=== PATIENT | female | born 1975 | race Hispanic/Latino ===

== ENCOUNTER 2018-08-02 07:09 | Outpatient (CLI) | payer OTHER ==
--- NOTE | 2018-08-02 07:50 | ULT ---
Sonogram abdomen complete HISTORY: Upper abdomen pain. FINDINGS: Gallbladder has a normal appearance without evidence of stones. Common duct is 0.5 cm. Live r has a normal appearance without focal mass or intrahepatic biliary dilatation. No free fluid. The spleen, kidneys, and visualized portions of abdominal aorta, IVC, and pancreas are unremarkable. IMPRESSION: Normal abdominal sonogram.
== END 2018-08-02 07:10 | disposition home or self-care (01) ==
LOC: BICULT 07:09
PROVIDERS: ATTEND Family Medicine
DX: R10.9 Unspecified abdominal pain (principal)
CPT/HCPCS: 76700

== ENCOUNTER 2019-01-05 12:55 | Outpatient (CLI) | payer OTHER, SELFPAY ==
[~2019-01-05 12:55] MED LIST: Iopamidol 370 76% 100 ML VIAL ONE
--- NOTE | 2019-01-05 15:05 | CT ---
EXAM: CT of the chest with contrast CT of the abdomen and pelvis with contrast HISTORY: History of breast cancer status post mastectomy in 2013. Breast cancer recurrence. COMPARISON: 04/04/2016 TECHNIQUE: 1. Multiple contiguous axial images were obtained in a CT the chest with contrast. Coronal and sagitt al reformats were performed. 2. Multiple contiguous axial images were obtained and a CT of the abdomen and pelvis with contrast. C oronal and sagittal reformats were performed. Oral contrast was administered. FINDINGS: CT CHEST: HEART: Normal in size without focal cardiac abnormality MEDIASTINUM: No hilar or mediastinal lymphadenopathy. LUNGS: No focal infiltrates, nodules, or masses. PLEURAL SPACE: No pneumothorax or pleural effusion. CHEST WALL SOFT TISSUES: Status post right mastectomy and axillary dissection. CT ABDOMEN/PELVIS: ABDOMEN: LIVER: within normal limits. BILE DUCTS: Normal caliber. GALLBLADDER: No calcified gallstones. Normal caliber wall. PANCREAS: within normal limits. SPLEEN: within normal limits. ADRENALS: within normal limits. KIDNEYS: within normal limits. PELVIS: REPRODUCTIVE ORGANS: No pelvic masses. URETERS: within normal limits. BLADDER: within normal limits. PERITONEUM: No ascites or free air, no fluid collection. BOWEL: Normal caliber. Normal appendix. MESENTERY AND RETROPERITONEUM: No enlarged mesenteric or retroperitoneal lymph nodes. VESSELS: Normal. ABDOMINAL WALL: within normal limits. OSSEOUS STRUCTURES: No suspicious osseous lesions. IMPRESSION: No evidence of recurrent or metastatic disease.
== END 2019-01-05 12:56 | disposition home or self-care (01) ==
LOC: BICCT 12:55
PROVIDERS: ATTEND Internal Medicine Hematology & Oncology
DX: C50.919 Malignant neoplasm of unspecified site of unspecified female breast (principal)
CPT/HCPCS: 71260; 74177

== ENCOUNTER 2019-01-12 06:06 | Day surgery (SDC) | payer OTHER ==
[2019-01-11 16:12] VITALS: BMI 24.3
[2019-01-12] MEDS ORDERED: Fentanyl 100 MCG/2 ML VIAL ONE (06:31)
[2019-01-12] MEDS ORDERED: Midazolam HCl 2 mg/2 ml Vial ONE (06:32)
[2019-01-12] MEDS ORDERED: Albumin 25% 100 ML ONE (06:32)
[2019-01-12] MEDS ORDERED: Bupivacaine/Epinephrine 0.25% 30 ML VIAL ONE (06:52)
[2019-01-12] MEDS ORDERED: Lidocaine 2% PF 5 ML VIAL ONE (06:52)
[2019-01-12] MEDS ORDERED: Famotidine/PF 20 mg/2ml Vial ONE (06:54)
[2019-01-12] MEDS ORDERED: Ondansetron PF 4 MG/2 ML Vial ONE ×2 (06:55→10:25)
[2019-01-12] MEDS ORDERED: Scopolamine 1.5 mg/72 hour Patch ONE (06:55)
[2019-01-12 06:56] LABS: #Basophils 0.1 thou/uL (0.0-0.2); #Eosinphils 0.3 thou/uL (0.0-0.7); #Lymphocytes 2.7 thou/uL (1.20-3.40); #Monocytes 0.5 thou/uL (0.11-0.59); #Neutrophils 2.8 thou/uL (1.40-6.50); %Basophils 1.2 % (0.0-1.0); %Eosinophils 5.3 % (0.0-10.0); %Lymphocytes 42.4 % (21.0-51.0); %Monocytes 7.4 % (0.0-10.0); %Neutrophils 43.6 % (42.0-75.0); Hemoglobin 12.4 g/dL (12.0-16.0); Mean Corpuscular HGB CONC 32.7 g/dL (32.0-36.0); Mean Corpuscular Hemoglobin 29.6 pg (27.0-31.0); Mean Corpuscular Volume 90.4 fL (78.0-98.0); Mean Platelet Volume 9.1 fL (7.4-10.4); Platelet Count 174 thou/uL (130-400); RBC Distribution Width 11.5 % (11.5-14.5); Red Blood Cell (RBC) Count 4.18 mill/uL (4.20-5.40); White Blood Cell (WBC) Count 6.4 thou/uL (4.8-10.8)
[2019-01-12 07:11] LABS: BHCG - Serum Negative (NEGATIVE); Pregs Control Background? CLEAR/WHITE (CLR/WHITE); Pregs Control Bar Appear? YES (CONTROL BAR)
[2019-01-12 07:18] LABS: Anion Gap 10 mmol/L (10-20); BUN (Urea Nitrogen) 17 mg/dL (7.0-18.7); Calc. Creatinine Clearance 87 mL/min (70-130); Calcium 9.2 mg/dL (7.8-10.44); Carbon Dioxide 26 mmol/L (22-29); Chloride 106 mmol/L (98-107); Estimated GFR-MDRD 79; Glucose 97 mg/dL (70-105); Potassium 4.4 mmol/L (3.5-5.1); Sodium 138 mmol/L (136-145)
[2019-01-12] MEDS ORDERED: HYDROcodone/Acetaminophen 5/325 mg Tablet ONE (10:02)
[2019-01-12] MEDS ORDERED: Ketorolac Tromethamine 30 MG/ML VIAL ONE (10:25)
[2019-01-12] MEDS ORDERED: Succinylcholine Chloride 20 MG/ML 10 ml SYRINGE FS ONE (10:25)
[2019-01-12] MEDS ORDERED: Lidocaine 1% PF 5 ML VIAL ONE (10:25)
[2019-01-12] MEDS ORDERED: Rocuronium Bromide 10 MG/ML (10ML VIAL) ONE (10:25)
[2019-01-12] MEDS ORDERED: PROPOFOL 200 MG/20 ML VIAL ONE (10:25)
--- NOTE | 2019-01-18 20:30 | PDOC.OP ---
Operative Note - Operative Note Operative Note: PROCEDURE: Excision of recurrent right breast cancer from mastectomy site SURGEON: Nav Donovan M.D. DATE: 01/12/2019 PREOPERATIVE DIAGNOSIS: Recurrent right breast cancer at mastectomy site POSTOPERATIVE DIAGNOSIS: Recurrent right breast cancer at mastectomy site HISTORY: Patient is status post mastectomy 6 years ago. She developed a nodule at her mastectomy site which was biopsied and is positive for recurrent breast cancer. CT was negative for distant recurrence. Excision was recommended. PROCEDURE IN DETAIL: After informed consent was obtained the patient was taken to the operating room she was placed in supine position and general anesthesia was administered. She was prepped and draped in standard sterile fashion and local anesthesia infused to the skin and subcutaneous tissues surrounding the nodule. This measured just around 1.5 cm and a 2 x 4 cm elliptical incision was marked to ensure complete excision but still allow closure. The lesion was excised and marked for orientation with a long lateral and short superior suture. The incision was then closed with a deep dermal 3-0 Monocryl suture and a 4-0 Monocryl subcuticular suture. Dermabond dressings were placed. The patient was extubated and taken to recovery in good condition. Estimated blood loss is minimal. There were no complications. Specimen is recurrent breast cancer of right mastectomy scar.
== END 2019-01-12 10:50 | disposition home or self-care (01) ==
LOC: SDC 06:06
PROVIDERS: ATTEND Surgery
PROC: 0HTT0ZZ Resection of Right Breast, Open Approach (ICD-10-PCS; principal; 2019-01-12)
DX: C50.811 Malignant neoplasm of overlapping sites of right female breast (principal); E07.9 Disorder of thyroid, unspecified; Z17.0 Estrogen receptor positive status [ER+]; Z79.810 Long term (current) use of selective estrogen receptor modulators (SERMs); Z79.899 Other long term (current) drug therapy
CPT/HCPCS: 36415; 80048; 84703; 85025; 88305; 88341; 88342; J0131; J1885; J2001; J2250; J2405; J2704; J3010; P9047; S0028

== ENCOUNTER 2019-06-20 08:03 | Outpatient (CLI) | payer OTHER ==
--- NOTE | 2019-06-20 10:08 | CT ---
CT OF CHEST AND ABDOMEN AND PELVIS PERFORMED WITH IV CONTRAST ENHANCEMENT: Date: 06/20/2019 HISTORY: Breast cancer. Right mastectomy and radiation. This is a follow-up. COMPARISON: 01/05/2019 study. FINDINGS: CT CHEST: There are somewhat ill-defined nodular parenchymal changes within the right middle lobe and the right lower lobe. The changes in the lower lobe are more anterior basal segment just near the major fissur e. I would favor that these are presenting pneumonic-type change and not metastatic lesions. The poss ibility that this is related to pneumonitis if there has been recent radiation is not excluded. There is no significant mediastinal or hilar lymphadenopathy. CT ABDOMEN: CT of abdomen was performed with contrast enhancement. The liver, spleen, pancreas, and gallbladder r egions all appear unremarkable. Right and left adrenal glands, and right and left kidneys are normal in size. No significant periaortic or mesenteric adenopathy. CT PELVIS: CT of pelvis was performed with contrast enhancement. Follicles are seen involving the adnexa. Endome trium is slightly thickened, this is probably related to stage of menstrual cycle. No adenopathy, mas s, or free fluid. OSSEOUS STRUCTURES: No lytic or blastic bony change. IMPRESSION: 1. Nodular appearing infiltrative-type changes seen in the right middle lobe and right lower lobe. T hese are located more anteriorly, and although this could represent a pneumonic process, after discus mariella with Dr. Pedroza, patient has had radiation since the previous exam and this could represent rad iation pneumonitis change as another possibility. 2. Post right mastectomy change. 3. Otherwise stable exam. POS: JESSICA
== END 2019-06-20 08:04 | disposition home or self-care (01) ==
LOC: BICCT 08:03
PROVIDERS: ATTEND Internal Medicine Hematology & Oncology
DX: C50.911 Malignant neoplasm of unspecified site of right female breast (principal); Z90.11 Acquired absence of right breast and nipple
CPT/HCPCS: 71260; 74177

== ENCOUNTER 2019-07-11 07:17 | Outpatient (CLI) | payer OTHER ==
[2019-07-11 10:44] LABS: Hemoglobin 12.9 g/dL (12.0-16.0); Mean Corpuscular HGB CONC 33.4 g/dL (32.0-36.0); Mean Corpuscular Hemoglobin 30.3 pg (27.0-31.0); Mean Corpuscular Volume 90.8 fL (78.0-98.0); Mean Platelet Volume 9.6 fL (7.4-10.4); Platelet Count 179 thou/uL (130-400); RBC Distribution Width 10.7 % (11.5-14.5); Red Blood Cell (RBC) Count 4.25 mill/uL (4.20-5.40); White Blood Cell (WBC) Count 5.1 thou/uL (4.8-10.8)
[2019-07-11 10:50] LABS: BHCG - Serum Negative (NEGATIVE); Pregs Control Background? CLEAR/WHITE (CLR/WHITE); Pregs Control Bar Appear? YES (CONTROL BAR)
== END 2019-07-11 07:18 | disposition home or self-care (01) ==
LOC: LABBT 07:17
PROVIDERS: ATTEND Obstetrics & Gynecology
DX: Z01.812 Encounter for preprocedural laboratory examination (principal); C50.919 Malignant neoplasm of unspecified site of unspecified female breast; Z17.0 Estrogen receptor positive status [ER+]
CPT/HCPCS: 84703; 85027; 86850; 86870; 86900; 86901

== ENCOUNTER 2019-07-13 12:31 | Outpatient (CLI) | payer OTHER ==
[2019-07-13 18:25] LABS: SARS-CoV-2 MS2 Positive; SARS-CoV-2 N Gene Negative; SARS-CoV-2 S Gene Negative; SARS-CoV-2 orf1ab Negative
== END 2019-07-13 12:32 | disposition home or self-care (01) ==
LOC: LABBT 12:31
PROVIDERS: ATTEND Obstetrics & Gynecology
DX: Z11.59 Encounter for screening for other viral diseases (principal); C50.919 Malignant neoplasm of unspecified site of unspecified female breast; Z17.0 Estrogen receptor positive status [ER+]
CPT/HCPCS: 87635; U0002

== ENCOUNTER → 2019-07-17 | Day surgery (SDC) | payer OTHER, SELFPAY ==
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
[2019-07-11 09:47] VITALS: BMI 25.7
[~2019-07-17] MED LIST changes: +Bupivacaine 0.25% HCL 30 ML VIAL ONE; +CeleCOXIB 100 MG CAP ONE; +Dexamethasone 20 MG/5 ML VIAL ONE; +Esmolol 100 MG/10 ML VIAL ONE; +Famotidine/PF 20 mg/2ml Vial ONE; +Fentanyl 100 MCG/2 ML VIAL ONE; +Ferric Subsulfate (ASTRINGYN) 8 ML VIAL ONE; +Gabapentin 300 MG CAP ONE; +Glycopyrrolate 0.2 MG/ML 5 ML SYRINGE ONE; +HYDROcodone/Acetaminophen 5/325 mg Tablet ONE; -Iopamidol 370 76% 100 ML VIAL ONE; +Ketorolac Tromethamine 30 MG/ML VIAL ONE; +Lidocaine 1% PF 5 ML VIAL ONE; +Lidocaine 1% w/Epinephrine 1:100K 20 ML VIAL ONE; +Midazolam HCl 2 mg/2 ml Vial ONE; +Ondansetron PF 4 MG/2 ML Vial ONE; +PROPOFOL 200 MG/20 ML VIAL ONE; +Rocuronium Bromide 10 MG/ML (10ML VIAL) ONE; +SUGAMMADEX SODIUM 200 MG/2 ML VIAL ONE; +Scopolamine 1.5 mg/72 hour Patch ONE; +Sodium Chloride 0.9% 0 ML ONE; +Succinylcholine Chloride 20 MG/ML 10 ml SYRINGE FS ONE
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
== END ==
LOC: SDC 07:01
PROVIDERS: ATTEND Obstetrics & Gynecology
PROC: 0UB74ZZ Excision of Bilateral Fallopian Tubes, Percutaneous Endoscopic Approach (ICD-10-PCS; principal; 2019-07-17)
PROC: 0UB24ZZ Excision of Bilateral Ovaries, Percutaneous Endoscopic Approach (ICD-10-PCS; principal; 2019-07-17)
DX: Z40.02 Encounter for prophylactic removal of ovary(s) (principal); N83.202 Unspecified ovarian cyst, left side; N83.201 Unspecified ovarian cyst, right side; K66.0 Peritoneal adhesions (postprocedural) (postinfection); E07.9 Disorder of thyroid, unspecified; Z85.3 Personal history of malignant neoplasm of breast; Z79.810 Long term (current) use of selective estrogen receptor modulators (SERMs); Z79.899 Other long term (current) drug therapy
CPT/HCPCS: 86850; 86900; 86901; 86922; 88307; J0690; J1100; J1885; J2001; J2250; J2405; J2704; J3010; J3490; S0020; S0028

== ENCOUNTER 2019-08-16 19:23 | Emergency (ER) | payer OTHER, SELFPAY ==
[2019-08-17 18:05] LABS: SARS-CoV-2 MS2 Positive; SARS-CoV-2 N Gene Negative; SARS-CoV-2 S Gene Negative; SARS-CoV-2 orf1ab Negative
== END 2019-08-16 20:10 | disposition home or self-care (01) ==
LOC: MERGE 19:23 → ERS 19:23
DX: R51 Headache (principal); R06.02 Shortness of breath; R05 Cough; Z20.828 Contact with and (suspected) exposure to other viral communicable diseases; J45.909 Unspecified asthma, uncomplicated; Z85.3 Personal history of malignant neoplasm of breast
CPT/HCPCS: 87635; 99284; U0003

== ENCOUNTER 2020-01-09 09:46 | Outpatient (CLI) | payer OTHER ==
--- NOTE | 2020-01-09 10:30 | MMO ---
Left Breast MAMMO Unilat Diag DDI LT+ESDRAS. CLINICAL HISTORY: Patient is 44 years old and is seen for diagnostic exam. The patient has no family history of breast cancer. The patient has a history of right Excisional Biopsy in December, - malignant, right Ultrasound Guided Core Biopsy in June, - invasive ductal carcinoma and right Mastectomy in 2012 - malignant. VIEWS: The views performed were: left craniocaudal with tomosynthesis; left mediolateral oblique with tomosynthesis; and left mediolateral with tomosynthesis. FILMS COMPARED: The present examination has been compared to prior imaging studies performed at [place] [facility] on 07/31/2015, 09/21/2016, 10/20/2017 and 12/29/2018. This study has been interpreted with the assistance of computer-aided detection. MAMMOGRAM FINDINGS: The breast is heterogeneously dense, which could obscure a lesion on mammography. There are benign appearing calcifications in the left breast. There are no suspicious masses, suspicious calcifications, or new areas of architectural distortion. IMPRESSION: THERE IS NO MAMMOGRAPHIC EVIDENCE OF MALIGNANCY. A ROUTINE FOLLOW-UP MAMMOGRAM IN 1 YEAR IS RECOMMENDED. THE RESULTS OF THIS EXAM WERE SENT TO THE PATIENT. ACR BI-RADS Category 2 - Benign finding MAMMOGRAPHY NOTE: 1. A negative mammogram report should not delay a biopsy if a dominant of clinically suspicious mass is present. 2. Approximately 10% to 15% of breast cancers are not detected by mammography. 3. Adenosis and dense breasts may obscure an underlying neoplasm. Reported by: MODESTO MONTES MD Electonically Signed: [id number]
== END 2020-01-09 09:47 | disposition home or self-care (01) ==
LOC: BICMAMMO 09:46
PROVIDERS: ATTEND Surgery
DX: Z08 Encounter for follow-up examination after completed treatment for malignant neoplasm (principal); Z85.3 Personal history of malignant neoplasm of breast
CPT/HCPCS: G0279

== ENCOUNTER 2021-01-05 10:11 | Outpatient (CLI) | payer OTHER | END 2021-01-05 10:12 | disposition home or self-care (01) | LOC: BICMAMMO 10:11 | PROVIDERS: ATTEND Surgery | DX: Z08 Encounter for follow-up examination after completed treatment for malignant neoplasm (principal); Z85.3 Personal history of malignant neoplasm of breast | CPT/HCPCS: G0279 ==

== ENCOUNTER 2021-02-12 08:43 | Outpatient (CLI) | payer OTHER | END 2021-02-12 08:44 | disposition home or self-care (01) | LOC: CT 08:43 | PROVIDERS: ATTEND Internal Medicine Hematology & Oncology | DX: M25.551 Pain in right hip (principal); C50.919 Malignant neoplasm of unspecified site of unspecified female breast | CPT/HCPCS: 71260; 74177; 78306; A9503 ==

== ENCOUNTER 2022-05-05 10:45 | Outpatient (CLI) | payer OTHER | END 2022-05-05 10:46 | disposition home or self-care (01) | LOC: BICMAMMO 10:45 | DX: Z08 Encounter for follow-up examination after completed treatment for malignant neoplasm (principal); Z85.3 Personal history of malignant neoplasm of breast | CPT/HCPCS: G0279 ==

== ENCOUNTER 2022-09-17 13:49 | Outpatient (CLI) | payer OTHER | END 2022-09-17 13:50 | disposition home or self-care (01) | LOC: SCSRAD 13:49 | PROVIDERS: ATTEND Family Medicine | DX: M54.6 Pain in thoracic spine (principal); M43.9 Deforming dorsopathy, unspecified | CPT/HCPCS: 72072 ==

== ENCOUNTER 2023-02-07 13:30 | Outpatient (CLI) | payer OTHER | END 2023-02-07 13:31 | disposition home or self-care (01) | LOC: BICRAD 13:30 | PROVIDERS: ATTEND Family Medicine | DX: R05.1 Acute cough (principal) | CPT/HCPCS: 71046 ==

== ENCOUNTER 2023-06-08 08:54 | Outpatient (CLI) | payer OTHER | END 2023-06-08 08:55 | disposition home or self-care (01) | LOC: BICMAMMO 08:54 | PROVIDERS: ATTEND Specialist | DX: Z08 Encounter for follow-up examination after completed treatment for malignant neoplasm (principal); Z85.3 Personal history of malignant neoplasm of breast | CPT/HCPCS: G0279 ==

== ENCOUNTER 2023-10-04 16:13 | Outpatient (CLI) | payer OTHER | END 2023-10-04 16:14 | disposition home or self-care (01) | LOC: BICRAD 16:13 | PROVIDERS: ATTEND Nurse Practitioner Family | DX: J45.20 Mild intermittent asthma, uncomplicated (principal) | CPT/HCPCS: 71046 ==

== ENCOUNTER 2024-02-29 08:51 | Outpatient (CLI) | payer OTHER | END 2024-02-29 08:52 | disposition home or self-care (01) | LOC: CT 08:51 → EDBD 09:00 | PROVIDERS: ATTEND Internal Medicine Hematology & Oncology | DX: C50.919 Malignant neoplasm of unspecified site of unspecified female breast (principal) | CPT/HCPCS: 71250; 74177; 78306; A9503 ==